=== PATIENT | female | born 1980 | race Caucasian/White ===

== ENCOUNTER 2022-08-31 07:09 | Emergency (ER) | payer BC ==
[~2022-08-31] VITALS: Ht 162.6 cm; Wt 67.1 kg
[2022-08-31] MEDS ORDERED: PEPCID AC20 MG PO (11:31)
[2022-08-31] MEDS ORDERED: ZOFRAN8 MG PO (11:31)
== END 2022-08-31 11:48 | disposition home or self-care (01) ==
LOC: ER 07:09
DX: K52.9 Noninfective gastroenteritis and colitis, unspecified (principal)